=== PATIENT | male | born 1995 | race Caucasian/White ===

== ENCOUNTER 2017-02-05 17:29 | Emergency (ER) | payer OTHER ==
--- NOTE | 2017-02-05 17:40 | EDM.PDOC ---
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 He taped it and continued to work. Patient denies any other injuries, numbness or tingling has been ambulatory during the day. Review of systems: As per history of present illness and below otherwise all systems reviewed and negative. Past medical history: As per history of present illness and as reviewed below otherwise noncontributory. Surgical history: As per history of present illness and as reviewed below otherwise noncontributory. Social history: No reported history of drug or alcohol abuse. Family history: As per history of present illness and as reviewed below otherwise noncontributory. Physical exam: General: Well developed, well nourished in NAD HEENT: Atraumatic, normocephalic, pupils reactive, negative for conjunctival pallor or scleral icterus, mucous membranes moist, throat clear, neck supple, nontender, trachea midline. Lungs: Clear to auscultation, breath sounds equal bilaterally, chest nontender. Heart: S1S2, regular, negative for clicks, rubs, or JVD. Abdomen: Soft, nondistended, nontender. Negative for masses or hepatosplenomegaly. Negative for costovertebral tenderness. Pelvis: Stable nontender. Genitourinary: Deferred. Rectal: Deferred. Extremities: Atraumatic, negative for cords or calf pain. Neurovascular unremarkable. Neuro: Awake, alert, oriented. Cranial nerves II through XII unremarkable. Cerebellum unremarkable. Motor and sensory unremarkable throughout. Exam nonfocal. Diagnostics: [] X-ray negative for fracture Therapeutics: [] Air splint Impression: [] Ankle sprain Plan: [] Ice Motrin elevate followup with PMD is Definitive disposition and diagnosis as appropriate pending reevaluation and review of above. left ankle Pain Score (Numeric/FACES): 5 - Related Data Allergies Allergy/AdvReac Type Severity Reaction Status Date / Time No Known Allergies Allergy Verified 02/05/17 17:37 Home Meds: Home Meds . [No Known Home Meds] 02/05/17 [History] Review of Systems - Review of Systems Review Of Systems: See Below (See history of present illness) Trauma Exam - Physical Exam Exam: See Below (See history of present illness) Course - Vital Signs Last Recorded V/S: Last Vital Signs Temp 36.3 C 02/05/17 17:37 Pulse 68 02/05/17 17:37 Resp 16 02/05/17 17:37 BP 122/77 02/05/17 17:37 Pulse Ox 98 02/05/17 17:37 - Orders/Labs/Meds Orders: Active Orders 24 hr Category Date Time Status Ankle Min 3V Lt [CR] Stat Exams 02/05/17 17:38 Taken Departure - Departure Time of Disposition: 18:31 Disposition: Home, Self-Care 01 Condition: good Clinical Impression: Left ankle sprain Qualifiers: Encounter type: initial encounter Involved ligament of ankle: unspecified ligament Qualified Code(s): S93.402A - Sprain of unspecified ligament of left ankle, initial encounter - Discharge Information Forms: ED Department Discharge Additional Instructions: The following information is given to patients seen in the emergency department who are being discharged to home. This information is to outline your options for follow-up care. We provide all patients seen in our emergency department with a follow-up referral. The need for follow-up, as well as the timing and circumstances, are variable depending upon the specifics of your emergency department visit. If you don't have a primary care physician on staff, we will provide you with a referral. We always advise you to contact your personal physician following an emergency department visit to inform them of the circumstance of the visit and for follow-up with them and/or the need for any referrals to a consulting specialist. The emergency department will also refer you to a specialist when appropriate. This referral assures that you have the opportunity for follow-up care with a specialist. All of these measure are taken in an effort to provide you with optimal care, which includes your follow-up. Under all circumstances we always encourage you to contact your private physician who remains a resource for coordinating your care. When calling for follow-up care, please make the office aware that this follow-up is from your recent emergency room visit. If for any reason you are refused follow-up, please contact the [facility] Emergency Department at and asked to speak to the emergency department charge nurse. job Bajwa elevate followup with PMD return here if symptoms worsen or change [facility] [address] [place] [id number] - My Orders Last 24 Hours: My Active Orders 02/05/17 17:38 Ankle Min 3V Lt [CR] Stat - Assessment/Plan Last 24 Hours: My Active Orders 02/05/17 17:38 Ankle Min 3V Lt [CR] Stat
[2017-02-05 18:44] VITALS: BP 125/74
--- NOTE | 2017-02-07 15:23 | CR ---
EXAM DATE: 02/05/17 PATIENT'S AGE: 21 Patient: GISELA EMERY Facility: [place], [place] Site . Site : 1995 Study: XRay Extremity Left [id number]/13/2017 6:05:51 PM Ordering Physician: Tom Altman Final Report: Left ankle. 3 VIEWS INDICATION: Injury. IMPRESSION: No visualized fracture. Alignments anatomic. Joint spaces unremarkable. Lateral soft tissue swelling. Dictated by Alex Hodge MD @ Feb 05 2017 6:22PM (Electronic Signature) Report Signed by Proxy. NORI
== END 2017-02-05 18:43 | disposition home or self-care (01) ==
LOC: MW.ED 17:29
DX: S93.402A Sprain of unspecified ligament of left ankle, initial encounter (principal); W22.8XXA Striking against or struck by other objects, initial encounter
CPT/HCPCS: 73610-26-LT; 73610-LT; 99282; 99283

== ENCOUNTER 2018-03-02 02:21 | Emergency (ER) | payer OTHER ==
[2018-03-02] MEDS ORDERED: Bacitracin Oint 1 GM U/D Packet TOP ONE (02:35)
[2018-03-02] MEDS ORDERED: Lidocaine 1% 20 ML MDV INJECT ONE (02:35)
[2018-03-02] MEDS ORDERED: Diphtheria,Pertussis(Acell),Tetanus Vaccine 0.5 ML Syringe IM ONE (02:35)
--- NOTE | 2018-03-02 02:43 | EDM.PDOC ---
ED HPI GENERAL MEDICAL PROBLEM - General Chief Complaint: Laceration Stated Complaint: HURT RIGHT LEG AT WORK Time Seen by Provider: 03/02/18 02:40 - History of Present Illness INITIAL COMMENTS - FREE TEXT/NARRATIVE: HISTORY AND PHYSICAL: History of present illness: Patient's 23-year-old male presents with concern of injury to his right side has occurred when a conveyor belt hit his leg sustaining 2 wounds to his upper thigh there is no other trauma or concern. Tetanus status is to be determined Review of systems: As per history of present illness and below otherwise all systems reviewed and negative. Past medical history: As per history of present illness and as reviewed below otherwise noncontributory. Surgical history: As per history of present illness and as reviewed below otherwise noncontributory. Social history: No reported history of drug or alcohol abuse. Family history: As per history of present illness and as reviewed below otherwise noncontributory. Physical exam: HEENT: Atraumatic, normocephalic, pupils reactive, negative for conjunctival pallor or scleral icterus, mucous membranes moist, throat clear, neck supple, nontender, trachea midline. Lungs: Clear to auscultation, breath sounds equal bilaterally, chest nontender. Heart: S1S2, regular, negative for clicks, rubs, or JVD. Abdomen: Soft, nondistended, nontender. Negative for masses or hepatosplenomegaly. Negative for costovertebral tenderness. Pelvis: Stable nontender. Genitourinary: Deferred. Rectal: Deferred. Extremities patient has 2 wounds to his right upper thigh 1 is approximately 2 cm in moderate depth is more superficial neurovascular exam is unremarkable is good hemostasis no evidence of foreign body Neuro: Awake, alert, oriented. Cranial nerves II through XII unremarkable. Cerebellum unremarkable. Motor and sensory unremarkable throughout. Exam nonfocal. Diagnostics: None Therapeutics: Wounds were irrigated with copious amounts 0.9 normal saline prepped and draped in sterile manner the 2 cm wound was anesthetized 1% lidocaine closed with 4-0 nylon interrupted suture bacitracin was applied easily removed was Impression: #1 right lower extremity injury with laceration Definitive disposition and diagnosis as appropriate pending reevaluation and review of above. - Related Data Allergies Allergy/AdvReac Type Severity Reaction Status Date / Time No Known Allergies Allergy Verified 02/05/17 17:37 Home Meds: Home Meds . [No Known Home Meds] 02/05/17 [History] Past Medical History HEENT History: Reports: None Cardiovascular History: Reports: Heart Murmur Respiratory History: Reports: None Gastrointestinal History: Reports: None Genitourinary History: Reports: None Musculoskeletal History: Reports: None Neurological History: Reports: None Psychiatric History: Reports: None Endocrine/Metabolic History: Reports: None Hematologic History: Reports: None Immunologic History: Reports: None Oncologic (Cancer) History: Reports: None Dermatologic History: Reports: None - Infectious Disease History Infectious Disease History: Reports: None - Past Surgical History Male Surgical History: Reports: Other (See Below) Other Male Surgeries/Procedures: testicle removal Social & Family History - Family History Family Medical History: Noncontributory - Caffeine Use Caffeine Use: Reports: Coffee ED ROS GENERAL - Review of Systems Review Of Systems: ROS reveals no pertinent complaints other than HPI. ED EXAM, SKIN/RASH Exam: See Below (The dictation) Course - Orders/Labs/Meds Orders: Active Orders 24 hr Category Date Time Status Vaccines to be Administered [RC] PER UNIT ROUTINE Care 03/02/18 02:36 Active Meds: Medications Discontinued Medications Generic Name Dose Route Start Last Admin Trade Name Ulisesq PRN Reason Stop Dose Admin Bacitracin 1 dose 03/02/18 02:35 Bacitracin Oint 1 Gm TOP 03/02/18 02:36 ONETIME ONE Diphtheria/Tetanus/Acell Pertussis 0.5 ml 03/02/18 02:35 Adacel IM 03/02/18 02:36 .ONCE ONE Lidocaine HCl 20 ml 03/02/18 02:35 Xylocaine 1% INJECT 03/02/18 02:36 ONETIME ONE Departure - Departure Time of Disposition: 02:42 Disposition: Home, Self-Care 01 Condition: Good Clinical Impression: Lower extremity injury, Laceration - Discharge Information Referrals: PCP,None [Primary Care Provider] - Additional Instructions: The following information is given to patients seen in the emergency department who are being discharged to home. This information is to outline your options for follow-up care. We provide all patients seen in our emergency department with a follow-up referral. The need for follow-up, as well as the timing and circumstances, are variable depending upon the specifics of your emergency department visit. If you don't have a primary care physician on staff, we will provide you with a referral. We always advise you to contact your personal physician following an emergency department visit to inform them of the circumstance of the visit and for follow-up with them and/or the need for any referrals to a consulting specialist. The emergency department will also refer you to a specialist when appropriate. This referral assures that you have the opportunity for followup care with a specialist. All of these measure are taken in an effort to provide you with optimal care, which includes your followup. Under all circumstances we always encourage you to contact your private physician who remains a resource for coordinating your care. When calling for followup care, please make the office aware that this follow-up is from your recent emergency room visit. If for any reason you are refused follow-up, please contact the [facility] emergency department at and asked to speak to the emergency department charge nurse. Follow-up primary medical doctor 1-2 days suture removal 10-14 days return as needed as discussed - My Orders Last 24 Hours: My Active Orders 03/02/18 02:36 Vaccines to be Administered [RC] PER UNIT ROUTINE - Assessment/Plan Last 24 Hours: My Active Orders 03/02/18 02:36 Vaccines to be Administered [RC] PER UNIT ROUTINE
[2018-03-02 03:23] VITALS: BP 126/79
== END 2018-03-02 03:10 | disposition home or self-care (01) ==
LOC: MW.ED 02:21
DX: S71.111A Laceration without foreign body, right thigh, initial encounter (principal); W22.8XXA Striking against or struck by other objects, initial encounter; Z23 Encounter for immunization
CPT/HCPCS: 12001; 90471; 90715; 99282; 99282-25

== ENCOUNTER 2022-01-24 20:44 | Emergency (ER) | payer OTHER ==
[2022-01-24] MEDS ORDERED: Sodium Chloride 0.9% 1,000 ML IV ONE (20:52)
[2022-01-24] MEDS ORDERED: diphenhydrAMINE 50 MG/ML SDV IVPUSH ONE (20:54)
[2022-01-24] MEDS ORDERED: Haloperidol Lactate 5 MG/ML SDV IM STA (20:54)
[2022-01-24] MEDS ORDERED: Haloperidol Lactate 5 MG/ML SDV ONE (21:03)
[2022-01-24] MEDS ORDERED: diphenhydrAMINE 50 MG/ML SDV ONE (21:04)
[2022-01-24 21:38] LABS: BLOOD UREA NITROGEN,BUN 19 mg/dL (7.0-18.0); CARBON DIOXIDE,CO2 21.4 mmol/L (21.0-32.0); CHLORIDE,CL 108 mmol/L (98-107); GLUCOSE RANDOM 106 mg/dL (74-106); LIPASE 90 U/L (73-393); POTASSIUM,K 3.8 mmol/L (3.5-5.1); SODIUM,NA 145 mmol/L (136-148)
[2022-01-25 05:18] VITALS: BP 128/74; PULSE 82
== END 2022-01-24 23:01 | disposition home or self-care (01) ==
LOC: MW.ED 20:44
DX: S01.01XA Laceration without foreign body of scalp, initial encounter (principal); F10.129 Alcohol abuse with intoxication, unspecified; Y90.8 Blood alcohol level of 240 mg/100 ml or more; V69.49XA Driver of heavy transport vehicle injured in collision with other motor vehicles in traffic accident, initial encounter; Y92.410 Unspecified street and highway as the place of occurrence of the external cause
CPT/HCPCS: 36415; 70450; 71260; 72125; 74177; 80053; 80305; 80307; 81003; 82550; 83690; 83735; 84484; 85025; 85610; 99284; J7030